=== PATIENT | male | born 1970 | race Caucasian/White ===

== ENCOUNTER 2024-06-29 20:27 | Emergency (ER) | payer OTHER ==
[2024-06-29 20:34] VITALS: BP 162/88; PULSE 79; RESP 18; TEMP 98.6; BMI 26.6
[2024-06-29] MEDS ORDERED: FLUORESCEIN NA 1 EA STRIP ONE (22:08)
[2024-06-29] MEDS ORDERED: TETRACAINE 0.5% OPHTH SOLN 2 ML BOTTLE ONE (22:08)
[2024-06-29] MEDS: TETRACAINE 0.5% HCL 0.6ML DROPPER.BOTTLE OS ONE (22:59)
[2024-06-29] MEDS: FLUORESCEIN NA 1 EA STRIP OS ONE (22:59)
[2024-06-29 23:39] LABS: HIV INTERPRETATION NEGATIVE (NEGATIVE)
[2024-06-30] MEDS ORDERED: DIPHTH,PERTUSS(ACELL),TET 0.5 ML DISP.SYRIN IM ONE (00:27)
[2024-06-30] MEDS: DIPHTH,PERTUSS(ACELL),TET 0.5 ML DISP.SYRIN IM ONE (00:30)
[2024-06-30] MEDS ORDERED: ERYTHROMYCIN 0.5% OPHTHALMIC OINTMENT 3.5 GM TUBE ONE (00:31)
[2024-06-30] MEDS: ERYTHROMYCIN 0.5% OPHTHALMIC OINTMENT 3.5 GM TUBE OS ONE (00:33)
[2024-06-30] MEDS: OFLOXACIN 0.3% OPHTHALMIC SOLUTION 5 ML BOTTLE OS ONE (00:33)
== END 2024-06-30 00:35 | disposition home or self-care (01) ==
LOC: JER 20:27 → JERFT 20:27 → JER 06-30 00:35
PROC: 3E0234Z Introduction of Serum, Toxoid and Vaccine into Muscle, Percutaneous Approach (ICD-10-PCS; principal; 2024-06-30)
DX: T15.92XA Foreign body on external eye, part unspecified, left eye, initial encounter (principal); X58.XXXA Exposure to other specified factors, initial encounter; Z23 Encounter for immunization
CPT/HCPCS: 36415; 86803; 87389; 90471; 90715; 99284-25

== ENCOUNTER 2024-09-12 05:37 | Day surgery (SDC) | payer OTHER ==
[2024-09-06 11:40] VITALS: BMI 25.1
[2024-09-12 11:47] VITALS: BP 116/87; PULSE 71; RESP 16; TEMP 98
== END 2024-09-12 11:59 | disposition home or self-care (01) ==
LOC: JASU-ENDO 05:37
PROVIDERS: ATTEND Internal Medicine Gastroenterology
PROC: 0DB78ZX Excision of Stomach, Pylorus, Via Natural or Artificial Opening Endoscopic, Diagnostic (ICD-10-PCS; 2024-09-12)
PROC: 0DB68ZX Excision of Stomach, Via Natural or Artificial Opening Endoscopic, Diagnostic (ICD-10-PCS; principal; 2024-09-12 10:45)
DX: K29.50 Unspecified chronic gastritis without bleeding (principal)
CPT/HCPCS: 88305-TC; 88342-TC

== ENCOUNTER 2024-10-17 04:24 | Day surgery (SDC) | payer OTHER ==
[2024-10-09 12:19] VITALS: BMI 25.1
[2024-10-17] MEDS ORDERED: SIMETHICONE 40 MG/0.6 ML BOTTLE ONE (09:40)
[2024-10-17 10:06] VITALS: TEMP 97.2
[2024-10-17 10:11] VITALS: RESP 12
[2024-10-17 10:36] VITALS: BP 121/79; PULSE 76
== END 2024-10-17 10:40 | disposition home or self-care (01) ==
LOC: JASU-ENDO 04:24
PROVIDERS: ATTEND Internal Medicine Gastroenterology
PROC: 0DJD8ZZ Inspection of Lower Intestinal Tract, Via Natural or Artificial Opening Endoscopic (ICD-10-PCS; principal; 2024-10-17 09:15)
DX: Z12.11 Encounter for screening for malignant neoplasm of colon (principal); K64.8 Other hemorrhoids; I10 Essential (primary) hypertension; R73.03 Prediabetes